=== PATIENT | male | born 1995 | race American Indian/Alaskan Native ===

== ENCOUNTER 2016-08-15 17:53 | Emergency (ER) | payer OTHER ==
[2016-08-15 18:38] LABS: Basophils % (Auto) 0.4 % (0.0-1.8); Eosinophils % (Auto) 0.8 % (0.0-4.3); Hemoglobin 12.8 gm/dl (11.8-15.2); Mean Corpuscular HGB Conc 33 % (32-34); Mean Corpuscular Hemoglobin 30 pg (28-32); Mean Corpuscular Volume 92 fl (84-94); Platelet Count 201 K/mm3 (140-440); Red Blood Count 4.25 M/mm3 (3.65-5.03); Red Cell Distribution Width 12.6 % (13.2-15.2); White Blood Count 5.2 K/mm3 (4.5-11.0)
[2016-08-15 18:53] LABS: Anion Gap 15 mmol/L; BUN/Creatinine Ratio 21.42; Blood Urea Nitrogen 15 mg/dL (9-20); Calcium 8.8 mg/dL (8.4-10.2); Carbon Dioxide 26 mmol/L (22-30); Chloride 99.5 mmol/L (98-107); Glucose 108 mg/dL (75-100); Potassium 3.7 mmol/L (3.6-5.0); Sodium 137 mmol/L (137-145)
--- NOTE | 2016-08-15 19:25 | Emergency Department Report ---
HPI - General Chief Complaint: Psych Time Seen by Provider: 08/15/16 18:15 - HPI HPI: This is a 20 year-old male who presents to the emergency department, brought in by his parents, with the need for a mental health evaluation. The patient has a history of bipolar disorder but they're concerned that he has started to develop more signs of schizophrenia. He used to be on medications but has not taken them in over a year. His psychiatrist was a doctor Annie, but he has not seen them in quite some time as well. The patient recently, for the past month, has been having auditory and visual hallucinations. The patient has been talking to himself and answering himself, having entire conversations without realizing people are watching him. The patient tells me that he has been seeing "spirits." His mother has witnessed him eating food directly off the floor and thinking that it is the appropriate weight act. He is been very agitated and sometimes appears combative. The patient has required inpatient admission to a psychiatric facility one time in the past, to [place]. The patient is a poor historian secondary to his psychiatric condition. ED Past Medical Hx - Past Medical History Previous Medical History?: Yes Hx Psychiatric Treatment: Yes (bipolar) - Surgical History Past Surgical History?: No - Social History Smoking Status: Unknown if ever smoked ED Review of Systems ROS: Stated complaint: MH EVAL Other details as noted in HPI Comment: All other systems reviewed and negative Constitutional: denies: chills, fever Eyes: denies: eye pain, eye discharge, vision change ENT: denies: ear pain, throat pain Respiratory: denies: cough, shortness of breath, wheezing Cardiovascular: denies: chest pain, palpitations Gastrointestinal: denies: abdominal pain, nausea, diarrhea Genitourinary: denies: urgency, dysuria Musculoskeletal: denies: back pain, joint swelling, arthralgia Skin: denies: rash, lesions Neurological: denies: headache, weakness, paresthesias Psychiatric: auditory hallucinations, visual hallucinations. denies: homicidal thoughts, suicidal thoughts Physical Exam - Physical Exam Vital Signs: Vital Signs 08/15/16 18:01 Temperature 98.1 F Pulse Rate 110 H O2 Sat by Pulse 99 Oximetry Physical Exam: GENERAL: The patient is well-developed well-nourished. HEENT: Normocephalic. Atraumatic. Extraocular motions are intact. Patient has moist mucous membranes. Pupils equal reactive to light bilaterally. NECK: Supple. Trachea is midline. CHEST/LUNGS: Clear to auscultation. There is no respiratory distress noted. HEART/CARDIOVASCULAR: Regular. There is no tachycardia. There is no gallop rub or murmur. ABDOMEN: Abdomen is soft, nontender. Patient has normal bowel sounds. There is no abdominal distention. SKIN: There is no rash. There is no edema. There is no diaphoresis. NEURO: The patient is awake. Patient follows most commands. Patient speaks very softly and is sometimes hard to understand. Withdraws from painful stimuli. MUSCULOSKELETAL: There is no tenderness or deformity. There is no limitation range of motion. There is no evidence of acute injury. PSYCH: Patient appears to be responding to internal stimuli. When the patient does answer questions he speaks very softly but will not respond all questions asked. ED Course Vital Signs 08/15/16 18:01 Temperature 98.1 F Pulse Rate 110 H O2 Sat by Pulse 99 Oximetry ED Medical Decision Making - Lab Data Result diagrams: 08/15/16 18:19 08/15/16 18:19 - Medical Decision Making 20-year-old male presents to the emergency department with his parents with complaint of probable psychosis. Patient appears to be responding to internal stimuli and does admit to auditory hallucinations seeing "spirits." Patient seen in the emergency department having conversations with himself. He answers most questions but some he will not and when he does he speaks very softly. Patient's mother has seen him acting appropriate and sometimes confused and combative. Patient's blood work thus far does not show any etiology of the patient's symptoms as there is no signs of infection, electrolyte abnormalities , renal insufficiency, glucose abnormalities and blood alcohol level is negative. We are currently awaiting the patient's urine but I do not believe that the patient is having his symptoms secondary to a urinary tract infection. It is possible the patient has some drugs on board but his symptoms aren't going on for a month and I believe that the patient is most likely having psychosis and some symptoms of schizophrenia. The patient requires a 1013 secondary to the fact that he is unable to complete his ADLs and take care of himself. Patient appears medically cleared for psychiatric placement and the crisis therapist has been contacted to assist. - Differential Diagnosis schizophrenia, bipolar disorder, substance abuse, schizoaffective, depressi Critical Care Time: No Critical care attestation.: If time is entered above; I have spent that time in minutes in the direct care of this critically ill patient, excluding procedure time. ED Disposition Clinical Impression: Auditory hallucinations, Visual hallucinations Psychosis Qualifiers: Psychosis type: unspecified psychosis type Qualified Code(s): F29 - Unspecified psychosis not due to a substance or known physiological condition Disposition: DC/TX PSY HOSP/PSY UNIT Is pt being admited?: No Condition: Stable Referrals: PRIMARY CARE, [Primary Care Provider] - 3-5 Days Time of Disposition: 21:01
[2016-08-15 21:22] LABS: Urine Drugs of Abuse Note Disclamer
[2016-08-15 21:32] LABS: Bilirubin,Urine NEG (Negative); Blood,Urine NEG (Negative); Ketones,Urine NEG (Negative); Leukocyte Esterase,Urine TR (Negative); Mucus,Urine FEW /HPF; Nitrite,Urine NEG (Negative); Protein,Urine <15 mg/dL mg/dL (Negative)
[2016-08-16 05:17] VITALS: BP 118/62
== END 2016-08-16 05:16 ==
LOC: ED 17:53
DX: F29 Unspecified psychosis not due to a substance or known physiological condition (principal); R44.0 Auditory hallucinations; R44.1 Visual hallucinations; F31.9 Bipolar disorder, unspecified
CPT/HCPCS: 36415; 80048; 80307; 81001; 85025; 99285; G0480; 80320

== ENCOUNTER 2018-03-16 18:22 | Emergency (ER) | payer OTHER ==
--- NOTE | 2018-03-16 20:32 | Emergency Department Report ---
ED Chest Pain HPI - General Chief Complaint: Chest Pain Stated Complaint: CHEST PAIN Time Seen by Provider: 03/16/18 20:25 Source: patient Mode of arrival: Ambulatory Limitations: No Limitations - History of Present Illness Initial Comments: Patient is 22 years old male with a significant past medical history. Patient presented to the ER complaining of right sided chest pain started 4 days ago. Patient describes this pain as sharp increase with inspiration. Patient denied any fever, cough or shortness of breath. Patient denied any recent long travel. MD Complaint: chest pain -: days(s) Onset: during rest Pain Location: right chest Pain Radiation: none Severity: moderate Severity scale (0 -10): 5 Quality: sharp Consistency: intermittent - Related Data Previous Rx's Medication Instructions Recorded Last Taken Type Naproxen [Naprosyn] 500 mg PO BID #14 tablet 03/17/18 Unknown Rx Allergies Allergy/AdvReac Type Severity Reaction Status Date / Time iodine Allergy Unknown Verified 03/16/18 18:39 Heart Score - HEART Score History: Slightly suspicious EKG: Non-specific Age: < 45 Risk factors: No known risk factors Troponin: < normal limit HEART Score: 1 - Critical Actions Critical Actions: 0-3 pts:0.9-1.7%risk of adverse cardiac event.Candidate for discharge ED Review of Systems ROS: Stated complaint: CHEST PAIN Other details as noted in HPI Comment: All other systems reviewed and negative Constitutional: denies: chills, fever ENT: denies: throat pain Respiratory: denies: cough, orthopnea, shortness of breath Cardiovascular: chest pain. denies: palpitations, dyspnea on exertion, orthopnea Gastrointestinal: denies: abdominal pain, nausea, vomiting Neurological: denies: headache, weakness ED Past Medical Hx - Past Medical History Hx Psychiatric Treatment: Yes (bipolar,schizophrenia) - Social History Smoking Status: Former Smoker Substance Use Type: Alcohol, Marijuana - Medications Home Medications: Home Medications Medication Instructions Recorded Confirmed Last Taken Type Naproxen [Naprosyn] 500 mg PO BID #14 tablet 03/17/18 Unknown Rx ED Physical Exam - General Limitations: No Limitations General appearance: alert, in no apparent distress - Head Head exam: Present: atraumatic, normocephalic, normal inspection - Eye Eye exam: Present: normal appearance - ENT ENT exam: Present: normal exam, normal orophraynx, mucous membranes moist - Respiratory Respiratory exam: Present: normal lung sounds bilaterally, chest wall tenderness - Cardiovascular Cardiovascular Exam: Present: regular rate, normal rhythm, normal heart sounds - GI/Abdominal GI/Abdominal exam: Present: soft, normal bowel sounds. Absent: distended, tenderness, guarding, rebound, rigid - Extremities Exam Extremities exam: Present: normal inspection, full ROM, normal capillary refill. Absent: tenderness, pedal edema, joint swelling, calf tenderness - Back Exam Back exam: Present: normal inspection, full ROM. Absent: tenderness, CVA tenderness (R) - Neurological Exam Neurological exam: Present: alert, oriented X3, CN II-XII intact, normal gait, reflexes normal - Skin Skin exam: Present: warm, intact, normal color ED Course Vital Signs 03/16/18 03/16/18 03/16/18 18:36 20:32 20:33 Temperature 98 F Pulse Rate 89 Respiratory 20 16 Rate Blood Pressure 141/79 136/78 Blood Pressure [Left] O2 Sat by Pulse 100 100 Oximetry 03/16/18 03/16/18 03/16/18 20:34 23:45 23:46 Temperature 98.2 F Pulse Rate 82 Respiratory 24 Rate Blood Pressure 136/78 128/77 Blood Pressure 136/75 [Left] O2 Sat by Pulse 100 98 98 Oximetry 03/17/18 00:00 Temperature Pulse Rate Respiratory Rate Blood Pressure 133/71 Blood Pressure [Left] O2 Sat by Pulse 98 Oximetry ED Medical Decision Making - Lab Data Result diagrams: 03/16/18 20:38 03/16/18 20:38 - EKG Data -: EKG Interpreted by Ar EKG shows normal: sinus rhythm Rate: normal - EKG Data Interpretation: no acute changes - Radiology Data Radiology results: report reviewed Chest x-ray is negative for acute finding VQ scan is negative for pulmonary embolism. - Medical Decision Making Patient is 22 years old male with a significant past medical history. Patient presented to the ER complaining of right sided chest pain started 4 days ago. Patient describes this pain as sharp increase with inspiration. Patient denied any fever, cough or shortness of breath. Patient denied any recent long travel. Patient's initial d-dimer was high. Patient is allergic to iodine so I chose to do VQ scan which came back negative for pulmonary embolism. I believe the patient's symptoms is most likely costochondritis versus pleurisy. I will prescribe patient with Naprosyn and advised him to follow up with his primary care physician in the next 2-3 days. Critical care attestation.: If time is entered above; I have spent that time in minutes in the direct care of this critically ill patient, excluding procedure time. ED Disposition Clinical Impression: Chest pain, Costochondritis, acute Disposition: DC-01 TO HOME OR SELFCARE Is pt being admited?: No Condition: Stable Instructions: Chest Pain (ED), Costochondritis (ED) Prescriptions: Naproxen [Naprosyn] 500 mg PO BID #14 tablet Referrals: PRIMARY CARE, [Primary Care Provider] - 3-5 Days
[2018-03-16 20:52] LABS: Basophils % (Auto) 0.5 % (0.0-1.8); Eosinophils # (Auto) 0.1 K/mm3 (0.0-0.4); Eosinophils % (Auto) 1.5 % (0.0-4.3); Hematocrit 44.5 % (35.5-45.6); Hemoglobin 14.8 gm/dl (11.8-15.2); Lymphocytes # (Auto) 2.3 K/mm3 (1.2-5.4); Lymphocytes % (Auto) 42.9 % (13.4-35.0); Mean Corpuscular HGB Conc 33 % (32-34); Mean Corpuscular Hemoglobin 31 pg (28-32); Mean Corpuscular Volume 93 fl (84-94); Monocytes # (Auto) 0.4 K/mm3 (0.0-0.8); Monocytes % (Auto) 7.9 % (0.0-7.3); Platelet Count 235 K/mm3 (140-440); Red Blood Count 4.81 M/mm3 (3.65-5.03); Red Cell Distribution Width 13.3 % (13.2-15.2)
[2018-03-16 21:15] LABS: Alanine Aminotransferase 26 units/L (7-56); Albumin 4.2 g/dL (3.9-5); BUN/Creatinine Ratio 8; Blood Urea Nitrogen 10 mg/dL (9-20); Calcium 9.5 mg/dL (8.4-10.2); Hemolysis Index 11; Lipase 24 units/L (13-60)
[2018-03-16 21:18] LABS: Bilirubin,Direct < 0.2 mg/dL (0-0.2)
--- NOTE | 2018-03-16 21:40 | XRay Report ---
FINAL REPORT PROCEDURE: XR CHEST ROUTINE 2V TECHNIQUE: PA and lateral chest radiographs were obtained. CPT 48566 HISTORY: Chest Pain COMPARISON: No prior studies are available for comparison. FINDINGS: Heart: Normal. Mediastinum/Vessels: Normal. Lungs/Pleural space: Normal. Bony thorax: No acute osseous abnormality. Other: IMPRESSION: Normal examination.
--- NOTE | 2018-03-17 00:07 | Nuclear Medicine Report ---
FINAL REPORT PROCEDURE: NM LUNG SCAN PERF/VENT TECHNIQUE: 4.9 mCi Tc-99m MAA was injected IV for pulmonary perfusion imaging in multiple projections. 10.02 mCi XENON 133 was inhaled for pulmonary ventilation imaging in multiple projections. . CPT 66181 REGULATORY GUIDELINES: The patient was released based upon guidelines established in [place] State Regulations for Protection Against Radiation, Chapter 8080-16-48-35, Release of Individuals Containing Radioactive Drugs or Implants. HISTORY: CHEST PAIN,SOB, COMPARISON: No prior studies are available for comparison. FINDINGS: Perfusion: No defects . Ventilation: No defects . IMPRESSION: No evidence of pulmonary embolism.
[2018-03-17 00:28] VITALS: BP 133/71
== END 2018-03-17 00:29 | disposition home or self-care (01) ==
LOC: ED 18:22
DX: M94.0 Chondrocostal junction syndrome [Tietze] (principal); F32.9 Major depressive disorder, single episode, unspecified; F20.9 Schizophrenia, unspecified; F12.10 Cannabis abuse, uncomplicated; Z87.891 Personal history of nicotine dependence; Z91.041 Radiographic dye allergy status
CPT/HCPCS: 36415; 71046; 78582; 80048; 80074; 83690; 84484; 85025; 85379; 93005; 93010; 99284; A9540; A9558